=== PATIENT | female | born 1950 | race Caucasian/White ===

== ENCOUNTER 2016-11-16 14:49 | Inpatient (IN) | payer MEDICARE, BC ==
[~2016-11-16] VITALS: Ht 170.2 cm; Wt 73.2 kg
--- NOTE | 2016-11-19 08:55 | MH ---
cc: ERIN SMITH MD DATE OF ADMISSION: 12/03/2016 PREOPERATIVE DIAGNOSIS Osteoarthritis bilateral knees. PLANNED PROCEDURE Bilateral total knee arthroplasty. CHIEF COMPLAINT AND HISTORY OF PRESENT ILLNESS This 66-year-old female has had intermittent and now progressive and frequent knee pain bilaterally for approximately 10 years. The patient has had several treatment modalities in the past including bracing, medication, attempts at weight loss therapy and arthroscopic surgery on the right knee. The patient was informed she would benefit from total knee arthroplasty many years ago. She is very limited in her activity. X-rays are consistent with advanced osteoarthritis. The left knee shows a defect in the femoral condyle which may represent an area of osteochondritis dissecans. Given the alternatives of treatment, she presents for total knee arthroplasty. In addition, given the risks and benefits of unilateral versus a bilateral procedure, the patient wishes to pursue the bilateral procedure understanding the slight increased risk associated with same. PAST MEDICAL HISTORY The patient has a history of - Hyperlipidemia. Arthritis. PREVIOUS SURGERIES Right knee arthroscopy. L4-L5 laminectomy. CURRENT MEDICATIONS 1. Acyclovir. 2. Calcium. 3. CoQ10. 4. Flaxseed oil. 5. Magnesium. 6. Pravastatin 40 mg. ALLERGIES MORPHINE. FAMILY HISTORY Noncontributory. SOCIAL HISTORY The patient denies tobacco use. She uses alcohol occasionally. 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 She is [id number]. REVIEW OF SYSTEMS Her review of systems is otherwise noncontributory. PHYSICAL EXAMINATION VITAL SIGNS: Height 5'7", weight 150, BMI 23.5. Blood pressure 110/70. HEENT: Normocephalic, atraumatic. Pupils equal, round, reactive to light. Extraocular muscles are intact. Oropharynx is clear. NECK: Supple. LUNGS: Clear to auscultation. HEART: Regular rate and rhythm. ABDOMEN: Soft, nondistended. Bowel sounds are present. AND RECTAL EXAMINATIONS: Deferred. EXTREMITIES: No cyanosis, clubbing or edema. The right knee has a slight valgus alignment. There is mild swelling and a palpable Edwards's cyst. There is no increased warmth or erythema. There is tenderness to the medial and lateral joint lines. There is no obvious instability. She has a satisfactory range of motion of the hip without pain. The left knee has a minimally restricted range of motion in flexion. There is tenderness to palpation over the lateral aspect as well as posteriorly. She has a positive Shantell's. She has a satisfactory range of motion of the hip without pain. NEUROLOGICALLY: No focal deficit. ASSESSMENT Osteoarthritis bilateral knees. PLAN Given the alternatives of treatment the patient does wish to pursue bilateral total knee arthroplasty based on the longstanding nature of her symptomatology, its limitation of her daily activity and its unresponsiveness to treatment. The nature of the planned surgical procedure, the risks, the expected benefits, as well as the postoperative expectations have been discussed with her in detail. In addition, the alternatives of the treatment and risks of same were discussed. Given the alternatives of a unilateral versus bilateral procedure, the patient does wish to pursue a bilateral procedure understanding the slight increased risk associated with same. The possibility of the procedure not improving her symptomatology was discussed and she acknowledges full understanding and consents to it. MD GERI Montalvo/JEFRY /11:00 PM /8:53 AM
[2016-11-19] MEDS ORDERED: FLAX10006 PO (09:09)
[2016-11-19] MEDS ORDERED: ACYC200C66 PO (09:09)
[2016-11-19] MEDS ORDERED: MULTTAB67 PO (09:09)
[2016-11-19] MEDS ORDERED: OMEGCAP PO (09:09)
[2016-11-19] MEDS ORDERED: OCUVTAB4 PO (09:09)
[2016-11-19] MEDS ORDERED: PRAV40TA2 PO (09:09)
[2016-11-19] MEDS ORDERED: CALCCHW9 CHEW (09:09)
[2016-12-03] MEDS: LACTATED RINGER'S 1000 ML IV SCH (06:45)
[2016-12-03] MEDS ORDERED: METOPROLOL TARTRATE 25 MG TAB PO PRN (06:45)
[2016-12-03] MEDS ORDERED: ceFAZolin 2 GM PREMIX 50 ML IV SCH (06:45)
[2016-12-03] MEDS ORDERED: INSULIN HUMAN REGULAR 1,000 UNITS/10 ML VIAL SQ PRN (06:45)
[2016-12-03] MEDS: CHLORHEXIDINE GLUCONATE 4% SOLN 120 ML BTL TOP SCH (06:45)
[2016-12-03] MEDS ORDERED: VANCOMYCIN 1000 MG/NS 250 ML (for <70 kg) IV SCH ×2 (06:45)
[2016-12-03] MEDS ORDERED: SODIUM CHLORID 0.9% 500 ML IV SCH (06:45)
[2016-12-03 06:56] VITALS: BP 115/68; PULSE 57; RESP 16; TEMP 97.9; O2SAT 97
[2016-12-03] MEDS ORDERED: SODIUM CHLORIDE 0.9% 20 ML VIAL ONE (07:06)
[2016-12-03] MEDS ORDERED: ceFAZolin INJ 1,000 MG VIAL ONE (07:07)
[2016-12-03] MEDS ORDERED: MIDAZOLAM HCL 5 MG/5 ML VIAL ONE (07:38)
[2016-12-03] MEDS ORDERED: HYDROmorphone HCL PF 2 MG/ML VIAL ONE (07:58)
[2016-12-03] MEDS ORDERED: ACETAMINOPHEN 1000 MG/100 ML VIAL IV ONE (07:58)
[2016-12-03] MEDS ORDERED: ceFAZolin INJ 1,000 MG VIAL IV ONE (10:00)
[2016-12-03] MEDS ORDERED: ALUMINUM/MAGNESIUM/SIMETH 30 ML CUP PO PRN (11:45)
[2016-12-03] MEDS ORDERED: Post-op Orders (for Pharmacy) MISC XX ONE (11:45)
[2016-12-03] MEDS ORDERED: POVIDONE IODINE 10% SOLN 118 ML BOTTLE TOPICAL PRN (11:45)
[2016-12-03] MEDS ORDERED: diphenhydrAMINE HCL 25 MG CAP PO PRN (11:45)
[2016-12-03] MEDS ORDERED: ACETAMINOPHEN 325 MG TAB PO PRN (11:45)
[2016-12-03] MEDS ORDERED: MAGNESIUM HYDROXIDE SUSP 30 ML CUP PO PRN (11:45)
[2016-12-03] MEDS ORDERED: HYDROmorphone HCL PF 2 MG/ML VIAL IV PRN (11:45)
[2016-12-03] MEDS ORDERED: TEMAZEPAM 15 MG CAP PO PRN (11:45)
[2016-12-03] MEDS ORDERED: oxyCODONE/ACETAMINOPHEN 5 MG/325 MG TAB PO PRN ×2 (11:45)
[2016-12-03] MEDS ORDERED: SODIUM CHLORIDE 0.9% FLUSH 5 ML FLUSH IVF PRN (11:45)
[2016-12-03] MEDS ORDERED: MISCELLANEOUS NURSING INFORMATION XX PRN (11:45)
[2016-12-03] MEDS ORDERED: NALOXONE HCL 0.4 MG/ML AMP IV PRN (11:45)
--- NOTE | 2016-12-03 11:45 | PD.OP ---
cc: Wes Childers MD Operative Report Date of Surgery: Dec 03, 2016 Preoperative Diagnosis: (1) Osteoarthritis of both knees Postoperative Diagnosis: (1) Osteoarthritis of both knees Procedure: Bilateral total knee arthroplasty Implants used: Right knee: Size 70 press-fit femoral component, size 75 cemented tibial component with a 12 mm polyethylene tibial bearing and a 34 cemented patellar button Left knee: Size 67 press-fit femoral component, size 75 cemented tibial component with a 10 mm polyethylene tibial bearing and a 34 cemented patellar button Anesthesia: General with preoperative bilateral regional blocks Surgeon: Wes Childers [facility] Registrar(s): Mavis Estrada PA-C ([place]) The surgical procedure was assisted by my physician's diploma dental assistant. Her presence was necessary throughout the case for manipulation and positioning of the surgical extremity. My PA was assisting me throughout the duration of this procedure. The skill set of the physician diploma dental assistant was medically necessary to complete this procedure. During the surgical case the surgical technician was working at the back table and the physician diploma dental assistant was directly assisting me. Operation and Findings: Indications: This 66 old female has a 10 year history of bilateral knee pain. It initially had been intermittent and now is constant and progressive. She has a diagnosis of osteoarthritis. X-rays show joint narrowing, osteophyte formation and subchondral sclerosis. She has been unresponsive to nonoperative measures including arthroscopic surgery on the right knee. She has also had bracing, medication, tense at weight loss and injection. Given the alternatives of the treatment she presents for total knee arthroplasty. In addition, the patient is requesting a bilateral procedure understanding the risks and benefits of same. Procedure and findings: The patient was taken to the operative suite and after undergoing an adequate level of general anesthesia was kept supine on the operating table. Preoperative antibiotics consisted of Ancef 2g IV and vancomycin 1 g IV. The left lower extremity was then prepped and draped in usual sterile fashion with alcohol and Hibiclens. A standard anterior approach the knee was made with incision centered over the medial one third of the patella. This was carried down through skin and subcutaneous tense tissue with a knife. The quadricep tendon was identified proximally and the patellar tendon distally. A medial parapatellar arthrotomy was made. A small joint effusion was evacuated. Upon entering the knee joint is noted to be marked degenerative changes which were tricompartmental in nature. It was worse in the medial compartment. The remnant of the ACL was excised. The menisci were excised. Osteophytes were removed. Attention was first focused on the distal femur where an intramedullary guide was used to make a 5 valgus cut. A sizing jig was then applied and a 70 selected. With the cutting block in place the anterior, posterior and chamfer cuts were made. Attention was then focused on the proximal tibia. An extramedullary guide was used. Approximately 2 mm of bone was resected. The varus/valgus alignment was also checked with an extramedullary guide. The tibia was then sized to a 75. A freehand technique was utilized on the patella. This was sized to a 34. Drill holes were made and trial components placed. The femoral component was noted to be slightly loose and therefore a [address] The 10 mm tibial bearing gave the best range of motion and stability. There was good patellar tracking. These components were therefore selected. The femoral drill holes were made. The tibial cement punches were made. The wound was thoroughly irrigated with pulse lavage. Bone cement was prepared on the back table. After thorough drying it was applied to the proximal tibia. The tibial component was then impacted in the place. All excess bone cement was removed. The tibial insert was then placed and the locking mechanism seated. The femoral component was then impacted in the place. The knee was then placed in full extension for further compression. After thorough drying bone cement was applied to the undersurface of the patella. The patellar button was seated and held with a compression clamp. All excess bone cement was removed. Once the cement had matured good range of motion, patellar tracking and stability was again noted. The wound was again thoroughly irrigated with pulse lavage. AutoVac drains were left in place. The incision was closed in layers utilizing #1 Vicryl suture on the extensor mechanism, 0 Vicryl suture on the deep tissue, 2-0 Vicryl suture on the subcutaneous tissue and prosper on the skin. Sterile dressings were applied. Attention was then focused on the right knee. An additional gram of Ancef was administered. The exact same procedure was completed. The size difference in the components included a 70 femur and a 12 tibial bearing. Once the dressings were applied the patient was awakened, transferred to the hospital bed and taken to the recovery room in stable condition. Estimated blood loss: 100 cc Complications: None Tourniquet time: Left knee- 76 minutes Right knee- 79 minutes Wes Childers MD Dec 03, 2016 11:45
[2016-12-03] MEDS ORDERED: DO NOT ADM ANY ANTICOAGULANT DRUGS XX PRN (11:48)
[2016-12-03] MEDS ORDERED: fentaNYL CITRATE 250 MCG/5 ML AMP ONE (11:56)
[2016-12-03] MEDS ORDERED: BUPIVACAINE HCL PF 0.5% 30 ML VIAL NB ONE (12:06)
[2016-12-03] MEDS ORDERED: DEXAMETHASONE SOD PHOS PF 10 MG/ML VIAL IV ONE (12:06)
[2016-12-03] MEDS ORDERED: ONDANSETRON HCL 4 MG/2 ML VIAL IV PUSH ONE (12:08)
[2016-12-03] MEDS ORDERED: ePHEDrine/NS 50 MG/5 ML SYR IV ONE (12:08)
[2016-12-03] MEDS ORDERED: LACTATED RINGER'S 1000 ML INJ 1,000 ML IV ONE (12:08)
[2016-12-03] MEDS ORDERED: PROPOFOL 200 MG/20 ML AMP IV ONE (12:08)
[2016-12-03] MEDS ORDERED: NEOSTIGMINE 3 MG/3 ML SYR IV ONE (12:08)
[2016-12-03] MEDS ORDERED: SODIUM CHLOR 0.9% 250 ML INJ 250 ML ONE ×3 (12:13→14:11)
[2016-12-03] MEDS: HYDROmorphone HCL PCA 6 MG/30 ML IV SCH (12:40)
[2016-12-03] MEDS: LACTATED RINGER'S 1000 ML INJ 1,000 ML IV SCH ×2 (12:40→19:54)
[2016-12-03] MEDS: ceFAZolin 2 GM PREMIX 50 ML IV SCH ×2 (13:00→17:53)
[2016-12-03] MEDS: PCA - TOTAL MG DILAUDID DELIVERED PER SHIFT OTHER SCH ×2 (14:00→21:49)
--- NOTE | 2016-12-03 14:29 | RADRPT ---
EXAM DATE/TIME: 12/03/2016 12:08 [facility] COMPARISON: No previous studies available for comparison. INDICATIONS : Post op left knee replacement MEDICAL HISTORY : None. SURGICAL HISTORY : None. ENCOUNTER: Initial ACUITY: 1 day PAIN SCORE: 0/10 LOCATION: Left knee FINDINGS: There is surgical placement of a total knee prosthesis which appears to be well seated with overlying surgical drains and anterior superficial surgical prosper CONCLUSION: Well-seated total knee prosthesis James Joseph MD on December 03, 2016 at 14:27 Board Certified Radiologist. This report was verified electronically.
--- NOTE | 2016-12-03 14:29 | RADRPT ---
EXAM DATE/TIME: 12/03/2016 12:15 [facility] COMPARISON: No previous studies available for comparison. INDICATIONS : Post op right knee replacement MEDICAL HISTORY : None. SURGICAL HISTORY : None. ENCOUNTER: Initial ACUITY: 1 day PAIN SCORE: 0/10 LOCATION: Right knee FINDINGS: There is placement of a total knee prosthesis well seated with anterior overlying surgical drains and superficial surgical prosper CONCLUSION: Well-seated total knee prosthesis James Joseph MD on December 03, 2016 at 14:27 Board Certified Radiologist. This report was verified electronically.
[2016-12-03 14:50] VITALS: BP 138/73; PULSE 66; RESP 17; TEMP 95.5; O2SAT 95
[2016-12-03] MEDS: ONDANSETRON HCL 4 MG/2 ML VIAL IVP PRN (15:19)
[2016-12-03] MEDS: SODIUM CHLORIDE 0.9% FLUSH 5 ML FLUSH IVF SCH (19:54)
[2016-12-03 19:55] VITALS: BP 109/63; PULSE 65; RESP 17; TEMP 96; O2SAT 98
[2016-12-03 19:57] VITALS: RESP 16
[2016-12-04] VITALS (7 sets, daily range): BP systolic 96–120; BP diastolic 49–69; PULSE 73–86; RESP 16–18; TEMP 96.5–100.3; O2SAT 93–98
[2016-12-04] MEDS: ceFAZolin 2 GM PREMIX 50 ML IV SCH (00:17)
[2016-12-04] MEDS: LACTATED RINGER'S 1000 ML IV SCH (03:20)
[2016-12-04] MEDS: CHLORHEXIDINE GLUCONATE 4% SOLN 120 ML BTL TOP SCH (03:20)
[2016-12-04] MEDS: LACTATED RINGER'S 1000 ML INJ 1,000 ML IV SCH ×2 (05:41→11:45)
[2016-12-04] MEDS: ONDANSETRON HCL 4 MG/2 ML VIAL IVP PRN ×2 (05:41→14:56)
[2016-12-04] MEDS: PCA - TOTAL MG DILAUDID DELIVERED PER SHIFT OTHER SCH ×3 (05:48→21:52)
[2016-12-04 06:13] LABS: HEMATOCRIT 26.6 % (35.0-46.0); REVIEW FLAG FINAL
--- NOTE | 2016-12-04 06:59 | PD.ORT.PN ---
Subjective Post Op Day #: 1 Subjective Remarks Pt laying comfortably in bed, awake and answering questions appropriately. Admits to well controlled bilateral knee pain. Admits to performing ankle pumps throughout the night. No other complaints noted. Objective Vitals Vital Signs Date Time Temp Pulse Resp B/P Pulse Ox O2 Delivery O2 Flow Rate FiO2 12/04/16 03:50 98.5 78 16 98/49 98 12/04/16 00:20 96.5 73 16 100/61 98 12/03/16 19:57 16 12/03/16 19:55 96.0 65 17 109/63 98 12/03/16 14:50 95.5 66 17 138/73 95 12/03/16 14:30 97.0 62 15 113/62 99 Nasal Cannula 2 12/03/16 14:00 64 14 104/47 99 Nasal Cannula 2 12/03/16 13:30 74 14 102/59 97 Nasal Cannula 2 12/03/16 13:00 64 14 91/46 96 Nasal Cannula 2 12/03/16 12:45 63 14 107/52 97 Nasal Cannula 2 12/03/16 12:40 14 12/03/16 12:30 76 14 109/59 97 Nasal Cannula 2 12/03/16 12:15 74 12 117/50 97 Nasal Cannula 2 12/03/16 12:00 66 12 116/58 99 Nasal Cannula 2 12/03/16 11:49 98.4 106 12 107/57 97 Nasal Cannula 2 12/03/16 06:56 97.9 57 16 115/68 97 I/O 12/03/16 12/03/16 12/03/16 12/04/16 12/04/16 12/04/16 07:00 15:00 23:00 07:00 15:00 23:00 Intake Total 3450 ml 1186 ml 1169 ml Output Total 2270 ml 1035 ml 205 ml Balance 1180 ml 151 ml 964 ml Intake Oral 480 ml IV Total 750 ml 706 ml 1169 ml Autotransfusion 1400 ml Other 1300 ml Output Urine Total 620 ml 650 ml Drainage Total 1450 ml 385 ml 205 ml Estimated Blood Loss 200 ml # Bowel Movements 0 Result Diagram: 12/04/16 0455 Imaging Last 48 hours Impressions Knee X-Ray 12/03/16 0000 Signed Impressions: Service Date/Time: Saturday, December 03, 2016 12:15 - CONCLUSION: Well-seated total knee prosthesis James Joseph MD Knee X-Ray 12/03/16 0000 Signed Impressions: Service Date/Time: Saturday, December 03, 2016 12:08 - CONCLUSION: Well-seated total knee prosthesis James Joseph MD Procedures Bilateral total knee arthroplasty (12/03/16) Objective Remarks Bilateral LE: Dressing is dry and intact. Warm LE. Good cap refill. 2+ pedal pulses No calf pain. Negative Atul's sign. Neurovascular intact. Free movement of ankles and toes. Assessment & Plan Ortho Post Op Day #: 1 Problem List: (1) History of total bilateral knee replacement (2) Osteoarthritis of both knees Assessment and Plan Ortho status stable POD #1. Progress therapy per protocol. Start CPM machine today. Continue Lovenox for DVT prophylaxis, pain management and bowel regimen. Discharge planning. Mavis Estrada Dec 04, 2016 06:59
[2016-12-04] MEDS: ACYCLOVIR 200 MG CAP PO SCH (08:47)
[2016-12-04] MEDS: PRAVASTATIN SOD 40 MG TAB PO SCH (08:47)
[2016-12-04] MEDS: CALCIUM CARBONATE 500 MG CHEWABLE TAB PO SCH (08:47)
[2016-12-04] MEDS: SODIUM CHLORIDE 0.9% FLUSH 5 ML FLUSH IVF SCH ×2 (08:48→20:46)
[2016-12-04] MEDS ORDERED: INFLUENZA VIRUS VACCINE (QUADRIVALENT) 0.5 ML SYR IM ONE (10:00)
[2016-12-04] MEDS: ENOXAPARIN SODIUM 40 MG/0.4 ML SYRINGE SQ SCH (11:00)
[2016-12-04] MEDS: SODIUM CHLOR 0.9% 1000 ML INJ 1,000 ML IV SCH ×2 (14:44→20:45)
[2016-12-04] MEDS: HYDROmorphone HCL PCA 6 MG/30 ML IV SCH (14:55)
[2016-12-04] MEDS ORDERED: METOCLOPRAMIDE HCL 10 MG/2 ML VIAL IV PRN (16:00)
[2016-12-04] MEDS: MULTIVITAMINS/MINERALS THERAPEUTIC TAB PO SCH (20:45)
[2016-12-04] MEDS: DOCUSATE SODIUM 100 MG CAP PO SCH (20:45)
[2016-12-05] VITALS (8 sets, daily range): BP systolic 101–142; BP diastolic 51–65; PULSE 80–98; RESP 16–20; TEMP 97–101.6; O2SAT 94–99
[2016-12-05] MEDS: CHLORHEXIDINE GLUCONATE 4% SOLN 120 ML BTL TOP SCH (03:36)
[2016-12-05] MEDS: PCA - TOTAL MG DILAUDID DELIVERED PER SHIFT OTHER SCH ×3 (06:00→21:12)
[2016-12-05] MEDS: SODIUM CHLOR 0.9% 1000 ML INJ 1,000 ML IV SCH ×3 (06:44→17:39)
--- NOTE | 2016-12-05 07:33 | PD.ORT.PN ---
Subjective Post Op Day #: 2 Subjective Remarks Pt laying comfortably in bed, awake and answering questions appropriately. Admits to well controlled bilateral knee pain, she is still using SEARCH MARKETING COORDINATOR pump. Admits to severe nausea yesterday - medication was adjusted and is feeling much better last night/ this AM. No other complaints noted. Objective Vitals Vital Signs Date Time Temp Pulse Resp B/P Pulse Ox O2 Delivery O2 Flow Rate FiO2 12/05/16 04:00 101.6 98 20 129/59 94 12/05/16 00:00 101.0 92 18 142/60 95 12/04/16 20:00 100.3 86 18 114/59 93 12/04/16 18:24 97 Nasal Cannula 2.00 12/04/16 16:00 97.9 79 16 120/58 93 12/04/16 14:55 16 12/04/16 14:00 16 12/04/16 12:07 Nasal Cannula 2.00 12/04/16 12:00 99.0 80 16 109/69 97 12/04/16 08:00 97.9 81 16 96/56 95 I/O 12/04/16 12/04/16 12/04/16 12/05/16 12/05/16 12/05/16 07:00 15:00 23:00 07:00 15:00 23:00 Intake Total 1649 ml 480 ml 605 ml 380 ml Output Total 1555 ml 2400 ml 90 ml 1400 ml Balance 94 ml -1920 ml 515 ml -1020 ml Intake Oral 480 ml 480 ml 380 ml IV Total 1169 ml 605 ml Output Urine Total 1350 ml 2400 ml 1400 ml Drainage Total 205 ml 90 ml # Bowel Movements 0 0 Result Diagram: 12/04/16 0455 Imaging Last 48 hours Impressions Knee X-Ray 12/03/16 0000 Signed Impressions: Service Date/Time: Saturday, December 03, 2016 12:15 - CONCLUSION: Well-seated total knee prosthesis James Joseph MD Knee X-Ray 12/03/16 0000 Signed Impressions: Service Date/Time: Saturday, December 03, 2016 12:08 - CONCLUSION: Well-seated total knee prosthesis James Joseph MD Procedures Bilateral total knee arthroplasty (12/03/16) Objective Remarks Bilateral LE: Dressing is dry and intact. Warm LE. Good cap refill. 2+ pedal pulses No calf pain. Negative Atul's sign. Neurovascular intact. Free movement of ankles and toes. Assessment & Plan Ortho Post Op Day #: 2 Problem List: (1) History of total bilateral knee replacement (2) Osteoarthritis of both knees Assessment and Plan Ortho status stable POD #2. Progress therapy per protocol. Continue CPM machine use. Continue Lovenox for DVT prophylaxis, pain management and bowel regimen. Discharge planning. Mavis Estrada Dec 05, 2016 07:33
[2016-12-05] MEDS: SODIUM CHLORIDE 0.9% FLUSH 5 ML FLUSH IVF SCH ×2 (08:58→21:00)
[2016-12-05] MEDS: PRAVASTATIN SOD 40 MG TAB PO SCH (08:58)
[2016-12-05] MEDS: ACYCLOVIR 200 MG CAP PO SCH (08:58)
[2016-12-05] MEDS: MULTIVITAMINS/MINERALS THERAPEUTIC TAB PO SCH ×2 (08:58→21:11)
[2016-12-05] MEDS: CALCIUM CARBONATE 500 MG CHEWABLE TAB PO SCH (08:58)
[2016-12-05] MEDS: DOCUSATE SODIUM 100 MG CAP PO SCH ×2 (08:58→21:11)
[2016-12-05] MEDS: ENOXAPARIN SODIUM 40 MG/0.4 ML SYRINGE SQ SCH (10:49)
[2016-12-06 04:00] VITALS: BP 163/69; PULSE 89; RESP 17; TEMP 99.6; O2SAT 97
[2016-12-06] MEDS: PCA - TOTAL MG DILAUDID DELIVERED PER SHIFT OTHER SCH ×3 (04:21→14:01)
[2016-12-06] MEDS: SODIUM CHLOR 0.9% 1000 ML INJ 1,000 ML IV SCH ×2 (04:22→09:25)
--- NOTE | 2016-12-06 07:47 | PD.ORT.PN ---
Subjective Post Op Day #: 3 Pain Scale: 5 Subjective Remarks The patient is awake and alert and answers questions appropriately. Her nausea is better. She is having the expected postoperative discomfort. She feels she is ready to go to rehabilitation. She has no other specific complaint. Objective Vitals Vital Signs Date Time Temp Pulse Resp B/P Pulse Ox O2 Delivery O2 Flow Rate FiO2 12/06/16 06:03 Room Air 12/06/16 04:00 99.6 89 17 163/69 97 12/05/16 23:39 99.9 88 17 139/65 96 12/05/16 21:12 18 12/05/16 19:00 100.0 84 17 133/64 99 12/05/16 18:20 21 12/05/16 17:41 Nasal Cannula 1.50 12/05/16 16:00 98.7 80 16 116/61 97 12/05/16 13:05 99 21 12/05/16 12:59 17 12/05/16 12:00 97.0 80 16 124/59 98 12/05/16 09:09 98 Nasal Cannula 1.00 12/05/16 08:25 98.4 90 16 101/51 97 I/O 12/05/16 12/05/16 12/05/16 12/06/16 12/06/16 12/06/16 07:00 15:00 23:00 07:00 15:00 23:00 Intake Total 1124 ml 1168 ml 1283 ml 480 ml Output Total 1480 ml 1350 ml 1000 ml 300 ml Balance -356 ml -182 ml 283 ml 180 ml Intake Oral 380 ml 960 ml 480 ml 480 ml IV Total 744 ml 208 ml 803 ml Output Urine Total 1400 ml 1350 ml 1000 ml 300 ml Drainage Total 80 ml # Voids 1 # Bowel Movements 1 0 0 Result Diagram: 12/04/16 0455 Imaging Last 48 hours Impressions Knee X-Ray 12/03/16 0000 Signed Impressions: Service Date/Time: Saturday, December 03, 2016 12:15 - CONCLUSION: Well-seated total knee prosthesis James Joseph MD Knee X-Ray 12/03/16 0000 Signed Impressions: Service Date/Time: Saturday, December 03, 2016 12:08 - CONCLUSION: Well-seated total knee prosthesis James Joseph MD Procedures Bilateral total knee arthroplasty (1/23/17) Objective Remarks Bilateral LE: Dressing is dry and intact. Warm LE. Good cap refill. 2+ pedal pulses No calf pain. Negative Atul's sign. Neurovascular intact. Free movement of ankles and toes. Assessment & Plan Ortho Post Op Day #: 3 Problem List: (1) History of total bilateral knee replacement (2) Osteoarthritis of both knees Assessment and Plan Ortho status stable POD #3 for discharge to rehabilitation. She'll follow with the undersigned as scheduled in approximately 3 weeks. Wes Childers MD Dec 06, 2016 07:47
[2016-12-06] MEDS ORDERED: HYDR2TAB PO (07:50)
[2016-12-06] MEDS ORDERED: ENOX40P SQ (07:50)
[2016-12-06] MEDS ORDERED: MISC-163 (07:52)
[2016-12-06] MEDS ORDERED: WALKER WHEELS/F1 MIS (07:52)
[2016-12-06] MEDS ORDERED: CPMMACHINE (07:52)
--- NOTE | 2016-12-06 07:57 | HHI.DS ---
Discharge Summary Admission Date Dec 03, 2016 at 06:07 Discharge Date: Dec 06, 2016 Admitting Diagnosis Osteoarthritis bilateral knees Diagnosis: (1) History of total bilateral knee replacement (2) Osteoarthritis of both knees Procedures Bilateral total knee arthroplasty (12/03/16) Brief History This is a 66 year old female patient has a 10 year history of bilateral knee pain. Initially had been intermittent. His now progressive infrequent. It is severely limiting her activity. She is now unresponsive to nonoperative measures including bracing, medication, tensor weight loss, and the patient has undergone previous arthroscopic surgery on the right. The patient was informed sugar benefit from total knee arthroplasty many years ago. X-rays are consistent with advanced osteophyte arthritis. The left knee shows a defect in the femoral condyle this may represent an area of osteochondritis dissecans. Given the alternatives of the treatment she presents for total knee arthroplasty. CBC/BMP: 12/04/16 0455 Significant Findings Laboratory Tests Test 12/04/16 04:55 Hemoglobin 9.3 GM/DL (11.6-15.3) Hematocrit 26.6 % (35.0-46.0) Imaging X-ray 2 views of both knees postoperatively 12/03/16 reveals good positioning of the total knee components. PE at Discharge Bilateral LE: Dressing is dry and intact. Warm LE. Good cap refill. 2+ pedal pulses No calf pain. Negative Atul's sign. Neurovascular intact. Free movement of ankles and toes. Hospital Course On the day of admission the patient was taken to the operating room where she underwent bilateral total knee arthroplasty. Patient tolerated the procedure well. For details of the operative procedure please see dictated operative note. The patient was placed on Ancef for infection prophylaxis and Lovenox for DVT prophylaxis. Physical therapy was consulted for gait training and lower extremity exercise per TKR protocol. Case management was consulted for discharge planning. This felt the patient would benefit from continuation of rehabilitation in a facility. The patient did have significant nausea postoperatively as she is sensitive to several medications. She also was slightly hypotensive and responded well to fluid bolus. Her postoperative hemoglobin was 9.3. At the time of discharge the patient was afebrile. Her pain was improving. Her nausea had resolved. She is therefore discharged to rehabilitation. She will follow with the undersigned in approximately 3 weeks as scheduled. She will continue Lovenox for DVT prophylaxis and was prescribed Dilaudid orally for pain. The patient acknowledges full understanding of the plan of treatment and agrees to it. Pt Condition on Discharge: Good Discharge Disposition: Rehab Inpatient Discharge Instructions Diet Instructions: As Tolerated, No Restrictions Activities You Can Perform: Full Weight Bearing Activities to Avoid: Lifting/Bending Wes Childers MD Dec 06, 2016 07:57
[2016-12-06 08:00] VITALS: BP 144/64; PULSE 88; RESP 18; TEMP 99.7; O2SAT 94
[2016-12-06] MEDS: SODIUM CHLORIDE 0.9% FLUSH 5 ML FLUSH IVF SCH (09:00)
[2016-12-06] MEDS: ACYCLOVIR 200 MG CAP PO SCH (09:25)
[2016-12-06] MEDS: DOCUSATE SODIUM 100 MG CAP PO SCH (09:25)
[2016-12-06] MEDS: PRAVASTATIN SOD 40 MG TAB PO SCH (09:25)
[2016-12-06] MEDS: CALCIUM CARBONATE 500 MG CHEWABLE TAB PO SCH (09:25)
[2016-12-06] MEDS: MULTIVITAMINS/MINERALS THERAPEUTIC TAB PO SCH (09:25)
[2016-12-06 10:15] VITALS: O2SAT 94
[2016-12-06] MEDS: ENOXAPARIN SODIUM 40 MG/0.4 ML SYRINGE SQ SCH (10:42)
[2016-12-06 12:00] VITALS: BP 141/65; PULSE 98; RESP 18; TEMP 99.7; O2SAT 93
[2016-12-06 14:01] VITALS: RESP 17
[2016-12-14] MEDS ORDERED: DILA2TAB2 PO (08:56)
[2016-12-14] MEDS ORDERED: OCUVTAB4 PO (08:56)
[2016-12-14] MEDS ORDERED: ACYC200C66 PO (08:56)
[2016-12-14] MEDS ORDERED: PRAV40TA2 PO (08:56)
[2016-12-14] MEDS ORDERED: DOCU1CAP39 PO (08:56)
[2016-12-14] MEDS ORDERED: ENOX40P SQ (08:56)
== END 2016-12-06 15:25 | DRG 462 ==
LOC: HSDI 12-03 06:07 → N06B 12-03 14:56
PROVIDERS: ADMIT Orthopaedic Surgery Sports Medicine; ATTEND Orthopaedic Surgery Sports Medicine
PROC: 0SRC0J9 Replacement of Right Knee Joint with Synthetic Substitute, Cemented, Open Approach (ICD-10-PCS; 2016-12-03)
PROC: 0QRF0JZ Replacement of Left Patella with Synthetic Substitute, Open Approach (ICD-10-PCS; 2016-12-03)
PROC: 0QRD0JZ Replacement of Right Patella with Synthetic Substitute, Open Approach (ICD-10-PCS; 2016-12-03)
PROC: 3E0T3CZ (ICD-10-PCS; 2016-12-03)
PROC: 0SRD0J9 Replacement of Left Knee Joint with Synthetic Substitute, Cemented, Open Approach (ICD-10-PCS; principal; 2016-12-03 08:00)
DX: M17.0 Bilateral primary osteoarthritis of knee (principal); I95.9 Hypotension, unspecified; E78.5 Hyperlipidemia, unspecified; M93.262 Osteochondritis dissecans, left knee; R11.0 Nausea; Z23 Encounter for immunization; Z88.5 Allergy status to narcotic agent
CPT/HCPCS: 73560; 85014; 85018; 86850; 86891; 86900; 86901; 90471; 90686; 94150; C1776; G0008; J0131; J0690; J1100; J1170; J1650; J2250; J2405; J2710; J2765; J3010; J3370; J7030; J7050; J7120; L1830; Q2038

== ENCOUNTER → 2016-11-19 | Outpatient (CLI) | payer MEDICARE, BC ==
[~2016-11-19] MED LIST: ACYC200C66 PO; CALCCHW9 CHEW; CPMMACHINE; DILA2TAB2 PO; DOCU1CAP39 PO; ENOX40P SQ; FLAX10006 PO; HYDR2TAB PO; MISC-163; MULTTAB67 PO; OCUVTAB4 PO; OMEGCAP PO; PRAV40TA2 PO; WALKER WHEELS/F1 MIS
[2016-11-19 09:06] LABS: APTT (PATIENT) 24.3 SEC (24.3-30.1); AUTOMATED NEUTROPHIL # 2.2 TH/MM3 (1.8-7.7); BASOPHIL % 0.5 % (0.0-2.0); BLOOD, URINE NEG (NEG); EOSINOPHIL % 0.6 % (0.0-4.0); GLUCOSE,URINE NEG (NEG); HEMATOCRIT 40.2 % (35.0-46.0); HEMO FLAGS DIFF FINAL; KETONE, URINE NEG (NEG); LYMPH % 34.4 % (9.0-44.0); LYMPHOCYTE # 1.4 TH/MM3 (1.0-4.8); MEAN CELL VOLUME 91.3 FL (80.0-100.0); MEAN CORPUSCULAR HEMOGLOBIN 31.6 PG (27.0-34.0); MEAN CORPUSCULAR HGB CONC 34.5 % (32.0-36.0); MONO % 11.2 % (0.0-8.0); NEUT % 53.3 % (16.0-70.0); NITRITE,URINE NEG (NEG); PLATELET COUNT 246 TH/MM3 (150-450); PROTHROMBIN TIME - PATIENT 10.7 SEC (9.8-11.6); RED CELL DISTRIBUTION WIDTH 13.1 % (11.6-17.2); SQUAMOUS EPITHELIAL CELL URINE 2 /hpf (0-5); URINE COLOR LIGHT-YELLOW (YELLW/STRAW); WHITE BLOOD COUNT 4.1 TH/MM3 (4.0-11.0)
[2016-11-19 09:10] LABS: COMMENT (UR) CULT NOT INDICATED; CULTURE IF INDICATED CULT NOT INDICATED
[2016-11-19 09:22] LABS: BICARBONATE 31.5 MEQ/L (21.0-32.0); POTASSIUM 4.5 MEQ/L (3.5-5.1)
--- NOTE | 2016-11-19 09:59 | RADRPT ---
EXAM DATE/TIME: 11/19/2016 09:34 [facility] COMPARISON: No previous studies available for comparison. INDICATIONS : Evaluate for pneumonia, pneumothorax or communicable disease . Preop chest for bilateral knee replace ment on 12/01/16, no chest complaints at this time MEDICAL HISTORY : None. SURGICAL HISTORY : None. ENCOUNTER: Initial ACUITY: 1 day PAIN SCORE: 0/10 LOCATION: Bilateral chest FINDINGS: PA and lateral views of the chest demonstrate the lungs to be symmetrically aerated without evidence of mass, infiltrate or effusion. The cardiomediastinal contours are unremarkable. Osseous structure s are intact. CONCLUSION: No acute disease. Endy Taylor MD on November 19, 2016 at 9:57 Board Certified Radiologist. This report was verified electronically.
[2016-11-19 12:58] LABS: MRSA PCR NEGATIVE (NEGATIVE); STAPH AUREUS PCR POSITIVE (NEGATIVE)
--- NOTE | 2016-11-20 14:11 | EKG ---
Date Performed: 11/19/2016 Time Performed: 08:38:13 PTAGE: 66 years EKG: Sinus rhythm NORMAL ECG Since PREVIOUS TRACING , no significant change noted PREVIOUS TRACIN10/01/2008 12.48 DOCTOR: Víctor Renae Interpretating Date/Time 11/20/2016 14:02:03
== END ==
LOC: CPRE 08:10
PROVIDERS: ATTEND Orthopaedic Surgery Sports Medicine
DX: Z01.810 Encounter for preprocedural cardiovascular examination (principal); Z01.812 Encounter for preprocedural laboratory examination; M17.0 Bilateral primary osteoarthritis of knee
CPT/HCPCS: 36415; 71020; 80048; 81001; 85025; 85610; 85730; 87640; 87641; 93005